=== PATIENT | male | born 1970 | race African-American/Black ===

== ENCOUNTER 2023-03-22 09:08 | Emergency (ER) | payer MEDICAID, OTHER ==
[~2023-03-22] VITALS: Ht 177.8 cm; Wt 94.0 kg
[2023-03-22 09:24] VITALS: BP 162/85
[2023-03-22] MEDS ORDERED: IBUPROFEN 400MG TABLET PO NR (10:15)
[2023-03-22] MEDS ORDERED: IBUP-2029 MT (10:43)
== END 2023-03-22 11:06 | disposition home or self-care (01) ==
LOC: ER 09:08
DX: M25.571 Pain in right ankle and joints of right foot (principal); M79.671 Pain in right foot
CPT/HCPCS: 73610; 73630; 99284; Z7610

== ENCOUNTER 2025-04-06 14:41 | Emergency (ER) | payer MEDICAID ==
[~2025-04-06] VITALS: Ht 177.8 cm; Wt 97.0 kg
[~2025-04-06 14:41] MED LIST: IBUP-2029 MT
[2025-04-06 15:03] VITALS: O2SAT 99
[2025-04-06] MEDS: IBUPROFEN 600MG TABLET PO ONE (16:15)
[2025-04-06] MEDS: BACITRACIN ZINC OINT UDPKT TOP ONE (16:51)
[2025-04-06] MEDS: LIDOCAINE HCL/PF 1% 10 MG/ML 5ML VIAL INFIL ONE (16:51)
[2025-04-06] MEDS ORDERED: SULF1TAB48 MT (16:56)
[2025-04-06 17:30] VITALS: BP 159/78; PULSE 79; RESP 16; TEMP 36.9; O2SAT 99
== END 2025-04-06 17:31 | disposition home or self-care (01) ==
LOC: ER 14:41
DX: L02.412 Cutaneous abscess of left axilla (principal)
CPT/HCPCS: 99283; J2003; Z7610 ×3